=== PATIENT | female | born 1970 | race Caucasian/White ===

== ENCOUNTER 2016-11-09 11:06 | Emergency (ER) | payer MEDICARE, OTHER ==
[~2016-11-09] VITALS: Wt 77.5 kg
[~2016-11-09 11:06] MED LIST: CLZP100T; DIVA500T33; HYOS0.1274 PO; IBUP-727; LORA-408; ONDA4TAB8 PO
[2016-11-09] MEDS ORDERED: IBUP-1542 PO (11:43)
[2016-11-09] MEDS ORDERED: LORA10TA3 PO (11:43)
[2016-11-09] MEDS ORDERED: AZIT500T3 PO (11:43)
--- NOTE | 2016-11-09 14:32 | ERD ---
ER Documentation Chief Complaint Date/Time DATE: 11/09/16 TIME: 14:30 Chief Complaint Pt. states "I have the flu, fever, and nasal congestion" HPI 46-year-old woman presents with 2 weeks of nasal congestion, rhinorrhea, cough, and intermittent fevers. She states she has been using [id number] medications without relief. She denies chest pain or shortness of breath, no calf or leg swelling, no vomiting or diarrhea, no headache or neck stiffness. Patient denies recent antibiotic use. ROS All systems reviewed and are negative except as per history of present illness. Medications Home Meds Active Scripts Loratadine* (Loratadine*) 10 Mg Tablet, 10 MG PO DAILY for na, #15 TAB Prov:NORBERTO CLEMENT MD 11/09/16 Ibuprofen* (Ibuprofen*) 600 Mg Tablet, 600 MG PO Q8 for PAIN AND/OR INFLAMMATION , #30 TAB Prov:NORBERTO CLEMENT MD 11/09/16 Azithromycin* (Zithromax*) 500 Mg Tablet, 500 MG PO DAILY for 5 Days, TAB Prov:NORBERTO CLEMENT MD 11/09/16 Hyoscyamine Sulfate* (Levsin*) 0.125 Mg Tablet, 0.125 MG PO Q8 Y for abdominal cramps, #10 TAB Prov:DIANA BRANDON DO 09/08/15 Ondansetron Hcl* (Zofran*) 4 Mg Tablet, 4 MG PO Q8H Y for NAUSEA AND/OR VOMITING , #8 TAB Prov:DIANA BRANDON DO 09/08/15 Reported Medications Clozapine* (Clozaril*) 100 Mg Tab 05/16/10 Ibuprofen (Motrin) 600 Mg Tablet 05/16/10 Divalproex Sodium (Depakote) 500 Mg Tablet. 05/16/10 Lorazepam (Ativan) 1 Mg Tablet 05/16/10 Allergies Allergies: Coded Allergies: No Known Drug Allergies (Verified Allergy, Mild, 07/18/14) PMhx/Soc Bipolar disorder History of Surgery: Yes (TUBAL LIGATION,ABDOMEN) Anesthesia Reaction: No Hx Neurological Disorder: No Hx Respiratory Disorders: No Hx Cardiac Disorders: No Hx Psychiatric Problems: Yes (BIPOLAR) Hx Miscellaneous Medical Probl: No Hx Alcohol Use: No Hx Substance Use: No Hx Tobacco Use: No Smoking Status: Never smoker FmHx Family History: No diabetes Physical Exam Vitals Vital Signs Date Time Temp Pulse Resp B/P Pulse Ox O2 Delivery O2 Flow Rate FiO2 11/09/16 11:07 98.5 119 20 148/74 100 Physical Exam GENERAL: Well-developed, well-nourished, well-hydrated, in no apparent distress , looks nontoxic in appearance HEENT: Moist mucous membranes, positive nasal congestion, no cervical spine tenderness or step-off deformities, no goiter, no jaundice or icterus, extraocular movements intact without pain. No submandibular induration, and no pharyngeal erythema NEURO: Alert and oriented 3, cranial nerves II through XII intact bilaterally, pupils equal round reactive to light, no focal deficits or facial asymmetry, sensation intact distally Strength 5/5 in upper and lower extremities bilaterally CARDIAC: Regular rate and rhythm, no murmurs rubs or gallops LUNGS: Clear bilaterally no wheezing crackles or stridor ABDOMEN: Soft nontender, no guarding, no rigidity, no rebound, no psoas sign no obturator sign. Normoactive bowel sounds SKIN: Warm and dry to touch, no abrasions, contusions, or hematomas, no lacerations, no ecchymosis, no target lesions, and without ulcers EXTREMITIES: No clubbing cyanosis or edema, calves are bilaterally symmetrical, no Homans sign, no popliteal cord sign. Distal pulses equal and bilateral PSYCH: Normal affect without agitation or irritability Procedures/MDM I provided reassurance to the patient and assured her we can manage her symptoms as an outpatient. Given the duration of her symptoms I will prescribe azithromycin. Patient feels much better at this time, and vital signs are normal, symptoms have improved. I did give strict instructions to return to the ED if symptoms continue or worsen, patient will otherwise follow-up with primary care physician. Patient understood instructions and agreed to plan. Departure Diagnosis: Primary Impression: URI (upper respiratory infection) URI type: acute nasopharyngitis (common cold) Qualified Code: J00 - Acute nasopharyngitis Additional Impression: Sinusitis Sinusitis location: frontal Chronicity: acute Recurrence: non-recurrent Qualified Code: J01.10 - Acute non-recurrent frontal sinusitis Condition: Good Patient Instructions: Sinusitis, Abx Tx NORBERTO CLEMENT MD Nov 09, 2016 14:32
== END 2016-11-09 12:01 | disposition home or self-care (01) ==
LOC: FTE 11:06
DX: J00 Acute nasopharyngitis [common cold] (principal); J01.10 Acute frontal sinusitis, unspecified
CPT/HCPCS: 99284

== ENCOUNTER 2017-06-03 19:37 | Emergency (ER) | payer MEDICARE, OTHER ==
[~2017-06-03] VITALS: Ht 167.6 cm; Wt 75.0 kg
[~2017-06-03 19:37] MED LIST changes: +AZIT500T3 PO; +IBUP-1542 PO; +LORA10TA3 PO
[2017-06-03 19:41] VITALS: Ht 167.6 cm; Wt 75.0 kg
[2017-06-03 20:22] LABS: URINE BLOOD (Dip) POC 1+ (NEGATIVE)
[2017-06-03 20:49] LABS: BASOPHILS % 0.5 % (0.0-2.0); EOSINOPHILS # 0.1 10^3/ul (0.0-0.5); EOSINOPHILS % 1.7 % (0.0-7.0); HEMATOCRIT 34.8 % (37.0-47.0); HEMOGLOBIN 11.8 g/dl (12.0-16.0); LYMPHOCYTES # 2.8 10^3/ul (0.8-2.9); LYMPHOCYTES % 32.9 % (15.0-51.0); MEAN CORPUSCULAR HEMOGLOBIN 31.7 pg (29.0-33.0); MEAN CORPUSCULAR HGB CONC 33.9 g/dl (32.0-37.0); MEAN CORPUSCULAR VOLUME 93.5 fl (82.0-101.0); MEAN PLATELET VOLUME 10.7 fl (7.4-10.4); MONOCYTE # 0.7 10^3/ul (0.3-0.9); MONOCYTES % 8.6 % (0.0-11.0); NEUTROPHILS % 56.1 % (39.0-77.0); PLATELET COUNT 144 10^3/UL (140-415); RED BLOOD COUNT 3.72 10^6/ul (4.20-5.40); RED CELL DISTRIBUTION WIDTH 11.8 % (11.5-14.5); WHITE BLOOD COUNT 8.4 10^3/ul (4.8-10.8)
[2017-06-03 21:09] LABS: PROTIME 13.2 Sec (12.2-14.2)
[2017-06-03 21:10] LABS: PARTIAL THROMBOPLASTIN TIME 32.4 Sec (25.0-35.0)
[2017-06-03 21:15] LABS: ALANINE AMINOTRANSFERASE 23 IU/L (13-69); ALBUMIN 3.8 g/dl (3.3-4.9); ALBUMIN/GLOBULIN RATIO 1.22; ALKALINE PHOSPHATASE 63 IU/L (42-121); ANION GAP 13 (8-16); ASPARTATE AMINO TRANSFERASE 15 IU/L (15-46); BLOOD UREA NITROGEN 9 mg/dl (7-20); CALCIUM 8.9 mg/dl (8.4-10.2); CARBON DIOXIDE 25 mmol/L (21-31); CHLORIDE 102 mmol/L (97-110); CREATININE 0.67 mg/dl (0.44-1.00); GLUCOSE 87 mg/dl (70-220); POTASSIUM 3.7 mmol/L (3.5-5.1); SODIUM 136 mmol/L (135-144); TOTAL PROTEIN 6.9 g/dl (6.1-8.1)
[2017-06-03 21:27] LABS: B-TYPE NATRIURETIC PEPTIDE 49 PG/ML (0-125); TROPONIN-I < 0.012 ng/ml (0.00-0.12)
--- NOTE | 2017-06-03 21:44 | RADRPT ---
PROCEDURE: XR Chest. CLINICAL INDICATION: Shortness of breath. TECHNIQUE: Single frontal chest x-ray. COMPARISON: 07/18/2014 FINDINGS: The cardiomediastinal silhouette is unremarkable. There is no congestive heart failure.. No focal i nfiltrate is seen. There is no pleural effusion. There is no pneumothorax. The osseous structures are unremarkable. IMPRESSION: 1. No active disease. RPTAT: HMVK .Lv Fair MD, MD Date Time Electronically viewed and signed by .Lv Fair MD, on 06/03/2017 21:44 .K/
[2017-06-03 22:06] LABS: D-DIMER 246.67 ng/ml (<460)
--- NOTE | 2017-06-03 22:13 | ERD ---
ER Documentation Chief Complaint Date/Time DATE: 06/03/17 Chief Complaint Shortness of breath x 1 month HPI The patient is a 47-year-old female, with a history of bipolar disorder and anxiety, who presents to the Emergency Department with complaint of shortness of breath. The patient reports hat her symptoms of shortness of breath have been occurring intermittently over the past one month. She admits to a history of similar symptoms in the past, which self resolved. She notes that she begins to feel anxious, and then has difficulty catching her breath. This episode occurred at approximately 5:00 PM today, prompting her visit to the emergency department. She denies any associated chest pain, palpitations or cough. Denies lower extremity edema, calf swelling or calf tenderness. Denies recent travel, recent surgeries, prolonged periods of immobilization, long car rides, recent . Denies history of DVT or PE. Denies hemoptysis. She does admit to regular OCP use, though does not remember the name of her medication. Denies fevers, sweats, chills, rhinorrhea, nasal congestion, sore throat, ear pain, neck pain, neck stiffness or new rashes. ROS All systems reviewed and are negative except as per history of present illness. Medications Home Meds Active Scripts Loratadine* (Loratadine*) 10 Mg Tablet, 10 MG PO DAILY for na, #15 TAB Prov:NORBERTO CLEMENT MD 11/09/16 Ibuprofen* (Ibuprofen*) 600 Mg Tablet, 600 MG PO Q8 for PAIN AND/OR INFLAMMATION , #30 TAB Prov:NORBERTO CLEMENT MD 11/09/16 Azithromycin* (Zithromax*) 500 Mg Tablet, 500 MG PO DAILY for 5 Days, TAB Prov:NORBERTO CLEMENT MD 11/09/16 Hyoscyamine Sulfate* (Levsin*) 0.125 Mg Tablet, 0.125 MG PO Q8 Y for abdominal cramps, #10 TAB Prov:DIANA BRANDON DO 09/08/15 Ondansetron Hcl* (Zofran*) 4 Mg Tablet, 4 MG PO Q8H Y for NAUSEA AND/OR VOMITING , #8 TAB Prov:DIANA BRANDON DO 09/08/15 Reported Medications Clozapine* (Clozaril*) 100 Mg Tab 05/16/10 Ibuprofen (Motrin) 600 Mg Tablet 05/16/10 Divalproex Sodium (Depakote) 500 Mg Tablet. 05/16/10 Lorazepam (Ativan) 1 Mg Tablet 05/16/10 Allergies Allergies: Coded Allergies: No Known Drug Allergies (Verified Allergy, Mild, 06/03/17) PMhx/Soc History of Surgery: Yes (TUBAL LIGATION,ABDOMEN) Anesthesia Reaction: No Hx Neurological Disorder: No Hx Respiratory Disorders: No Hx Cardiac Disorders: No Hx Psychiatric Problems: Yes (BIPOLAR) Hx Miscellaneous Medical Probl: No Hx Alcohol Use: No Hx Substance Use: No Hx Tobacco Use: No Smoking Status: Never smoker Physical Exam Vitals Vital Signs Date Time Temp Pulse Resp B/P Pulse Ox O2 Delivery O2 Flow Rate FiO2 06/03/17 22:18 98.7 99 21 126/81 100 Room Air 06/03/17 22:12 94 20 98 06/03/17 19:41 98.8 135 18 142/83 97 Physical Exam GENERAL: Well-developed, well-nourished, female, in no acute distress. HEENT: Head is normocephalic, atraumatic. No scleral pallor or icterus. Pupils equal, round and reactive to light. Extraocular movements intact. Conjunctiva pink. Moist mucous membranes. Clear oropharynx. No lip or tongue swelling. NECK: Supple. No masses, no tenderness, no lymphadenopathy. Trachea midline. Full range of motion. RESPIRATORY: Lungs are clear to auscultation bilaterally. No rales, rhonchi or wheezing. Equal breath sounds. Normal expiratory effort. Symmetric expansion. No accessory muscle use. Speaking in full sentences. CARDIOVASCULAR: Tachycardic. Regular rhythm. S1 and S2 normal. No murmurs, rubs, or gallops. Distal pulses are palpable, 2+ bilaterally. Capillary refill is less than 2 seconds. GASTROINTESTINAL: Abdomen is soft, non-tender, and non-distended. No guarding, no rebound tenderness. Normal bowel sounds. BACK: No midline tenderness. EXTREMITIES: No clubbing, cyanosis, or edema. Normal skin perfusion. Moving all extremities. Muscle tone is normal. No focal swelling or erythema. NEUROLOGIC: The patient is alert, awake, and oriented x 3. No focal neurologic deficits. INTEGUMENT: Skin is intact. Warm and dry. No rashes, no petechiae present. Normal turgor. PSYCHIATRIC: Cooperative. Result Diagram: 06/03/17204206/03/172042 Results 24 hrs Laboratory Tests Test 06/03/17 20:29 06/03/17 20:43 Bedside Urine pH (LAB) 5.5 Bedside Urine Protein (LAB) Negative Bedside Urine Glucose (UA) Negative Bedside Urine Ketones (LAB) Negative Bedside Urine Blood 1+ Bedside Urine Nitrite (LAB) Negative Bedside Urine Leukocyte Esterase (L Negative White Blood Count 8.410^3/ul Red Blood Count 3.7210^6/ul Hemoglobin 11.8g/dl Hematocrit 34.8% Mean Corpuscular Volume 93.5fl Mean Corpuscular Hemoglobin 31.7pg Mean Corpuscular Hemoglobin Concent 33.9g/dl Red Cell Distribution Width 11.8% Platelet Count 15547^3/UL Mean Platelet Volume 10.7fl Neutrophils % 56.1% Lymphocytes % 32.9% Monocytes % 8.6% Eosinophils % 1.7% Basophils % 0.5% Nucleated Red Blood Cells % 0.0/100WBC Neutrophils # (Manual) 4.710^3/ul Lymphocytes # 2.810^3/ul Monocytes # 0.710^3/ul Eosinophils # 0.110^3/ul Basophils # 0.010^3/ul Nucleated Red Blood Cells # 0.010^3/ul Prothrombin Time 13.2Sec Prothrombin Time Ratio 1.0 INR International Normalized Ratio 1.00 Activated Partial Thromboplast Time 32.4Sec D-Dimer 246.67ng/ml D-Dimer Comment Sodium Level 136mmol/L Potassium Level 3.7mmol/L Chloride Level 102mmol/L Carbon Dioxide Level 25mmol/L Anion Gap 13 Blood Urea Nitrogen 9mg/dl Creatinine 0.67mg/dl Glucose Level 87mg/dl Calcium Level 8.9mg/dl Total Bilirubin 0.0mg/dl Direct Bilirubin 0.00mg/dl Indirect Bilirubin 0.0mg/dl Aspartate Amino Transf (AST/SGOT) 15IU/L Alanine Aminotransferase (ALT/SGPT) 23IU/L Alkaline Phosphatase 63IU/L Troponin I < 0.012ng/ml B-Type Natriuretic Peptide 49PG/ML Total Protein 6.9g/dl Albumin 3.8g/dl Globulin 3.10g/dl Albumin/Globulin Ratio 1.22 Serum HCG, Qualitative NEGATIVE Procedures/MDM EMERGENCY DEPARTMENT COURSE: The patient was stable throughout the ED course. Patient placed on potline monitor and pulse oximetry monitoring. She had O2 saturations of 97-100% throughout the ED course. EKG, chest x-ray, laboratory testing performed. On reevaluation, the patient reports no new complaints and states that she is no longer feeling short of breath. Laboratory tests and imaging reviewed and discussed with Dr. Nunez, who recommends that the patient be discharged home to follow up with PMD as an outpatient. No indication for advanced imaging at this time. DIAGNOSTIC TESTS AND INTERPRETATION: PROCEDURE: XR Chest. CLINICAL INDICATION: Shortness of breath. TECHNIQUE: Single frontal chest x-ray. COMPARISON: 07/18/2014 FINDINGS: The cardiomediastinal silhouette is unremarkable. There is no congestive heart failure.. No focal infiltrate is seen. There is no pleural effusion. There is no pneumothorax. The osseous structures are unremarkable. IMPRESSION: 1. No active disease. .Lv Fair MD, MD Date Time Electronically viewed and signed by .Lv Fair MD, MD on 06/03/2017 21:44 EKG Reviewed and Interpreted by: Dr. Nunez EKG Interpretation: Sinus tachycardia. 121 bpm. Normal axis. No ST-segment elevations. No ectopy. MEDICAL DECISION MAKING: This is a 47-year-old female with history of bipolar disorder and anxiety presenting to the emergency department with complaint of shortness of breath. She was placed in a room and monitored. Lung examination revealed no rales, no rhonchi, no wheezing. She had no nasal flaring, no retractions, no accessory muscle use, no signs of respiratory distress. Chest x- ray performed, with no acute cardiopulmonary abnormalities identified. EKG with no findings of STEMI or acute ischemic changes. Laboratory testing with no significant anemia, no leukocytosis, no significant electrolyte abnormalities. Troponin and D-dimer negative. BNP 49. Given patient history, presentation and results, doubt pneumonia, pulmonary edema, upper respiratory infection, pneumothorax, sepsis, anemia, acute coronary syndrome, pulmonary embolus, metabolic acidosis, congestive heart failure, acute respiratory distress syndrome or any other emergent medical condition. After rest the patient reports no new complaints, and improved/resolved symptoms. Upon my review and interpretation of the patient's presentation and ER course, I believe the patient's symptoms are most consistent with shortness of breath, uncertain etiology. Shortness of breath may be secondary to underlying anxiety, though uncertain at this time. The patient is in stable condition and no longer experiencing any shortness of breath and therefore she can be discharged home with strict return precautions for signs of deteriorating or worsening condition. The patient is advised to follow up with her primary care provider within 1-2 days for reevaluation and further management or return to the ER sooner for any worsening symptoms. I shared my medical decision making and plan with the patient at length and in great detail, and the patient verbally understands and agrees with the plan for further observation and care as an outpatient. At the time of discharge all questions were answered. Departure Diagnosis: Primary Impression: Shortness of breath Condition: Stable Patient Instructions: Coping with Shortness of Breath: Controlling Stress, Dyspnea Additional Instructions: Call your primary care doctor TOMORROW for an appointment during the next 1-2 days.See the doctor sooner or return here if your condition worsens before your appointment time. MILES AWAD PA-C Jun 03, 2017 22:13
[2017-06-03 22:18] VITALS: BP 126/81; PULSE 99; RESP 21; TEMP 98.7
== END 2017-06-03 22:18 | disposition home or self-care (01) ==
LOC: FTE 19:37
DX: R06.02 Shortness of breath (principal)
CPT/HCPCS: 36415; 71010; 80053; 81003; 83880; 84484; 84703; 85025; 85378; 85610; 85730; 93005

== ENCOUNTER 2017-09-04 13:36 | Emergency (ER) | payer MEDICARE, OTHER ==
[~2017-09-04] VITALS: Ht 162.6 cm; Wt 74.3 kg
[2017-09-04 14:05] VITALS: Ht 162.6 cm; Wt 74.3 kg
[2017-09-04] MEDS ORDERED: KETOROLAC 30 MG INJ IV STA (15:38)
[2017-09-04 16:22] LABS: ADD UMIC NO; UR ASCORBIC ACID 40 mg/dL (NEGATIVE); UR BILIRUBIN (Dip) NEGATIVE (NEGATIVE); UR BLOOD (Dip) NEGATIVE (NEGATIVE); UR CLARITY CLEAR (CLEAR); UR COLOR STRAW (YELLOW); UR GLUCOSE (Dip) NEGATIVE (NEGATIVE); UR KETONES (Dip) NEGATIVE (NEGATIVE); UR LEUKOCYTE ESTERASE (Dip) NEGATIVE Leu/ul (NEGATIVE); UR NITRITE (Dip) NEGATIVE (NEGATIVE); UR SPECIFIC GRAVITY (Dip) 1.004 (1.003-1.030); UR TOTAL PROTEIN (Dip) NEGATIVE (NEGATIVE); UR UROBILINOGEN (Dip) NEGATIVE (NEGATIVE)
[2017-09-04 16:25] VITALS: BP 107/56; RESP 16; TEMP 98.6
[2017-09-04] MEDS ORDERED: IBUPROFEN 800 MG TAB PO ONE (16:30)
--- NOTE | 2017-09-04 16:52 | RADRPT ---
PROCEDURE: CT abdomen and pelvis without contrast. CLINICAL INDICATION: Abdominal pain. TECHNIQUE: CT of the abdomen and pelvis was performed without contrast. Coronal and sagittal reform atted images were obtained from the axial source images. Images were reviewed on a high-resolution [email or web address] workstation. The total exam CTDI equals 10.16 mGy and the total exam DLP equals 556.34 mGy-cm. D ICOM images are available. One or more of the following dose reduction techniques were used: - Automated exposure control. - Adjustment of the mA and/or kV according to patient size. - Use of iterative reconstruction technique. COMPARISON: None available. FINDINGS: Visualized lower thorax: The visualized lung bases are clear. The visualized heart is unremarkable. Hepatobiliary system and spleen: The liver is grossly unremarkable. There is no intra or extrahepat ic biliary ductal dilatation. The gallbladder is contracted. The spleen is grossly unremarkable. The pancreas is grossly unremarkable. Adrenal glands and genitourinary system: The adrenal glands are grossly unremarkable. There is no n ephrolithiasis or hydronephrosis. The urinary bladder is grossly unremarkable. The uterus and adnex a are grossly unremarkable. Gastrointestinal system: There is a moderate volume of stool throughout the colon and rectum. There is no bowel wall thickening or evidence of obstruction. The appendix is in the right lower quadrant and is unremarkable. Peritoneum, vascular, and lymphatics: There is no free intraperitoneal air or free fluid. There is no mesenteric or retroperitoneal adenopathy. The aorta is nonaneurysmal. Musculoskeletal system and soft tissues: There is multilevel degenerative enthesopathy, which is mo derate to severe at L5-S1. There are no concerning osseous lesions. The soft tissues are unremarkabl e. IMPRESSION: 1. No acute abnormality or findings to suggest a source of the patient's symptoms. 2. Moderate volume of stool throughout the colon and rectum, suggestive of constipation. RPTAT: HLBP .Alberto Barragan MD, MD Date Time Electronically viewed and signed by .Alberto Barragan MD, MD on 09/04/2017 16:52 .P/
--- NOTE | 2017-09-04 17:15 | ERD ---
ER Documentation Chief Complaint Chief Complaint upper abd pain x 2 weeks, denies N/V/D HPI This is a 47-year-old female who presents the emergency department today complaining of some abdominal pain for the past 2 weeks. States that the pain is in the middle of her stomach and goes upwards. States that she had her menstrual cycle but has still continued to have some cramping. Denies any fevers or chills, vomiting, dysuria. States that he had an ovarian cyst removed years ago. States that she has taken Profen for pain. States that she is bipolar with anxiety and last time she was hospitalized she had a manic episode after the pain medication she was given and she is very concerned about that. States that she takes because of pain, Depakote, Lorazepam and clonazepam daily. States that she recently started taking oral contraceptive pills ROS All systems reviewed and are negative except as per history of present illness. Medications Home Meds Active Scripts Docusate Sodium* (Colace*) 100 Mg Capsule, 100 MG PO TID, #30 CAP Prov:LORI DELCID PA-C 09/04/17 Polyethylene Glycol* (Miralax*) 17 Gm Powd.pack, 17 GM PO DAILY, #15 Prov:LORI DELCID PA-C 09/04/17 Ibuprofen* (Motrin*) 600 Mg Tab, 600 MG PO Q6, #30 TAB Prov:LORI DELCID PA-C 09/04/17 Acetaminophen* (Tylophen*) 500 Mg Capsule, 1 CAP PO Q6H Y for PAIN AND OR ELEVATED TEMP, #30 CAP Prov:LORI DELCID PA-C 09/04/17 Loratadine* (Loratadine*) 10 Mg Tablet, 10 MG PO DAILY for na, #15 TAB Prov:NORBERTO CLEMENT MD 11/09/16 Ibuprofen* (Ibuprofen*) 600 Mg Tablet, 600 MG PO Q8 for PAIN AND/OR INFLAMMATION , #30 TAB Prov:NORBERTO CLEMENT MD 11/09/16 Azithromycin* (Zithromax*) 500 Mg Tablet, 500 MG PO DAILY for 5 Days, TAB Prov:NORBERTO CLEMENT MD 11/09/16 Hyoscyamine Sulfate* (Levsin*) 0.125 Mg Tablet, 0.125 MG PO Q8 Y for abdominal cramps, #10 TAB Prov:DIANA BRANDON DO 09/08/15 Ondansetron Hcl* (Zofran*) 4 Mg Tablet, 4 MG PO Q8H Y for NAUSEA AND/OR VOMITING , #8 TAB Prov:DIANA BRANDON DO 09/08/15 Reported Medications Clozapine* (Clozaril*) 100 Mg Tab 05/16/10 Ibuprofen (Motrin) 600 Mg Tablet 05/16/10 Divalproex Sodium (Depakote) 500 Mg Tablet. 05/16/10 Lorazepam (Ativan) 1 Mg Tablet 05/16/10 Allergies Allergies: Coded Allergies: No Known Drug Allergies (Verified Allergy, Mild, 06/03/17) PMhx/Soc History of Surgery: Yes (TUBAL LIGATION,ABDOMEN) Anesthesia Reaction: No Hx Neurological Disorder: No Hx Respiratory Disorders: No Hx Cardiac Disorders: No Hx Psychiatric Problems: Yes (BIPOLAR) Hx Miscellaneous Medical Probl: No Hx Alcohol Use: No Hx Substance Use: No Hx Tobacco Use: No Physical Exam Vitals Vital Signs Date Time Temp Pulse Resp B/P Pulse Ox O2 Delivery O2 Flow Rate FiO2 09/04/17 16:25 98.6 16 107/56 98 Room Air 09/04/17 14:05 98.1 103 19 122/66 99 Physical Exam Const: anxious Head: Atraumatic Eyes: Normal Conjunctiva ENT: Normal External Ears, Nose and Mouth. Neck: Full range of motion..~ No meningismus. Resp: Clear to auscultation bilaterally Cardio: Regular rate and rhythm, no murmurs Abd: Soft, perimubilical non distended. Normal bowel sounds. No specific tenderness at McBurney's. No pelvic pain Skin: No petechiae or rashes Back: No midline or flank tenderness Ext: No cyanosis, or edema Neur: Awake and alert Psych: Normal Mood and Affect Result Diagram: 09/04/17 1715 09/04/17 171 Results 24 hrs Laboratory Tests Test 09/04/17 15:44 09/04/17 17:15 Urine Color STRAW Urine Clarity CLEAR Urine pH 6.0 Urine Specific [place] 1.004 Urine Ketones NEGATIVEmg/dL Urine Nitrite NEGATIVEmg/dL Urine Bilirubin NEGATIVEmg/dL Urine Urobilinogen NEGATIVEmg/dL Urine Leukocyte Esterase NEGATIVELeu/ul Urine Hemoglobin NEGATIVEmg/dL Urine Glucose NEGATIVEmg/dL Urine Total Protein NEGATIVEmg/dl White Blood Count 9.410^3/ul Red Blood Count 3.4310^6/ul Hemoglobin 11.3g/dl Hematocrit 32.9% Mean Corpuscular Volume 95.9fl Mean Corpuscular Hemoglobin 32.9pg Mean Corpuscular Hemoglobin Concent 34.3g/dl Red Cell Distribution Width 12.0% Platelet Count 50581^3/UL Mean Platelet Volume 11.1fl Neutrophils % 55.7% Lymphocytes % 33.5% Monocytes % 9.1% Eosinophils % 1.1% Basophils % 0.3% Nucleated Red Blood Cells % 0.0/100WBC Neutrophils # 5.210^3/ul Lymphocytes # 3.110^3/ul Monocytes # 0.910^3/ul Eosinophils # 0.110^3/ul Basophils # 0.010^3/ul Nucleated Red Blood Cells # 0.010^3/ul Sodium Level 139mmol/L Potassium Level 4.3mmol/L Chloride Level 105mmol/L Carbon Dioxide Level 24mmol/L Anion Gap 14 Blood Urea Nitrogen 9mg/dl Creatinine 0.64mg/dl Glucose Level 86mg/dl Calcium Level 9.1mg/dl Total Bilirubin 0.2mg/dl Direct Bilirubin 0.00mg/dl Indirect Bilirubin 0.2mg/dl Aspartate Amino Transf (AST/SGOT) 13IU/L Alanine Aminotransferase (ALT/SGPT) 32IU/L Alkaline Phosphatase 62IU/L Total Protein 6.8g/dl Albumin 3.5g/dl Globulin 3.30g/dl Albumin/Globulin Ratio 1.06 Lipase 98U/L Current Medications Medications (Trade) Dose Ordered Sig/[place]ora Route PRN Reason Start Time Stop Time Status Last Admin Dose Admin Ketorolac Tromethamine (Toradol) 30 mg ONCE STAT IV 09/04/17 15:38 09/04/17 15:39 Cancel Ibuprofen (Motrin) 800 mg ONCE ONCE PO 09/04/17 16:30 09/04/17 16:31 DC 09/04/17 16:08 DIAGNOSTIC IMAGING REPORT Patient: VIANNEY SANCHEZ : 1970 Age: 47 Sex: F MR #: [id number] DOS: 09/04/17 1538 Ordering MD: LORI DELCID PA-C Location: [facility] Room/Bed: PROCEDURE: CT abdomen and pelvis without contrast. CLINICAL INDICATION: Abdominal pain. TECHNIQUE: CT of the abdomen and pelvis was performed without contrast. Coronal and sagittal reformatted images were obtained from the axial source images. Images were reviewed on a high-resolution PACS workstation. The total exam CTDI equals 10.16 mGy and the total exam DLP equals 556.34 mGy-cm. DICOM images are available. One or more of the following dose reduction techniques were used: - Automated exposure control. - Adjustment of the mA and/or kV according to patient size. - Use of iterative reconstruction technique. COMPARISON: None available. FINDINGS: Visualized lower thorax: The visualized lung bases are clear. The visualized heart is unremarkable. Hepatobiliary system and spleen: The liver is grossly unremarkable. There is no intra or extrahepatic biliary ductal dilatation. The gallbladder is contracted. The spleen is grossly unremarkable. The pancreas is grossly unremarkable. Adrenal glands and genitourinary system: The adrenal glands are grossly unremarkable. There is no nephrolithiasis or hydronephrosis. The urinary bladder is grossly unremarkable. The uterus and adnexa are grossly unremarkable. Gastrointestinal system: There is a moderate volume of stool throughout the colon and rectum. There is no bowel wall thickening or evidence of obstruction. The appendix is in the right lower quadrant and is unremarkable. Peritoneum, vascular, and lymphatics: There is no free intraperitoneal air or free fluid. There is no mesenteric or retroperitoneal adenopathy. The aorta is nonaneurysmal. Musculoskeletal system and soft tissues: There is multilevel degenerative enthesopathy, which is moderate to severe at L5-S1. There are no concerning osseous lesions. The soft tissues are unremarkable. IMPRESSION: 1. No acute abnormality or findings to suggest a source of the patient's symptoms. 2. Moderate volume of stool throughout the colon and rectum, suggestive of constipation. RPTAT: HLBP .Alberto Barragan MD, MD Date Time Electronically viewed and signed by .lAberto Barragan MD, MD on 09/04/2017 16:52 .P/ CC: LORI DELCID PA-C Procedures/MDM This is a very anxious 47-year-old female who presents to the emergency department today complaining of abdominal pain for the past couple of weeks. Patient does have a history of ovarian cyst however she has no pelvic pain at this time. Patient denied any other symptoms with the exception of pain however given the duration of her symptoms I did obtain a CT abdomen and pelvis as well as laboratory workup. laboratory workup shows no elevated white blood cell count. Her hemoglobin is very mildly decreased. Platelets are within normal limits. Electrolytes are within normal limits. Glucose is within normal limits. Liver enzymes are within normal limits. Lipase is within normal limits. UA is negative for infection test is negative CT Abdomen pelvis noncontrast shows no acute abnormality or findings to suggest pain. Patient does have a moderate volume of stool throughout the colon and rectum suggestive of constipation. There is no bowel wall thickening or evidence of obstruction. Appendix is unremarkable. There is no nephrolithiasis or hydronephrosis. Bladder is unremarkable. Uterus and adnexa are grossly unremarkable. She has no pelvic pain and I have low suspicion for ectopic , tubo- ovarian abscess, ovarian torsion. Symptoms at this time is consistent with abdominal pain that may be related to constipation. I explained this to the patient. I will give her prescription for MiraLAX and Colace. Patient may take her usual psych medications. I will give her Tylenol and Motrin for pain. At this time the patient is stable for discharge and outpatient management. Patient should follow up with their PCP in the next 1-2 days. They may return to the emergency department sooner for any persistent or worsening of symptoms. Patient understood and agreed with the plan. Departure Diagnosis: Primary Impression: Abdominal pain Abdominal location: periumbilical Qualified Code: R10.33 - Periumbilical abdominal pain Additional Impression: Constipation Constipation type: unspecified constipation type Qualified Code: K59.00 - Constipation, unspecified constipation type Condition: Fair LORI DELCID PA-C Sep 04, 2017 17:15
[2017-09-04 17:25] LABS: BASOPHILS % 0.3 % (0.0-2.0); EOSINOPHILS # 0.1 10^3/ul (0.0-0.5); EOSINOPHILS % 1.1 % (0.0-7.0); HEMATOCRIT 32.9 % (37.0-47.0); HEMOGLOBIN 11.3 g/dl (12.0-16.0); LYMPHOCYTES # 3.1 10^3/ul (0.8-2.9); LYMPHOCYTES % 33.5 % (15.0-51.0); MEAN CORPUSCULAR HEMOGLOBIN 32.9 pg (29.0-33.0); MEAN CORPUSCULAR HGB CONC 34.3 g/dl (32.0-37.0); MEAN CORPUSCULAR VOLUME 95.9 fl (82.0-101.0); MEAN PLATELET VOLUME 11.1 fl (7.4-10.4); MONOCYTE # 0.9 10^3/ul (0.3-0.9); MONOCYTES % 9.1 % (0.0-11.0); NEUTROPHIL # 5.2 10^3/ul (1.6-7.5); NEUTROPHILS % 55.7 % (39.0-77.0); PLATELET COUNT 201 10^3/UL (140-415); RED BLOOD COUNT 3.43 10^6/ul (4.20-5.40); WHITE BLOOD COUNT 9.4 10^3/ul (4.8-10.8)
[2017-09-04 17:49] LABS: ALBUMIN 3.5 g/dl (3.3-4.9); ALBUMIN/GLOBULIN RATIO 1.06; BILIRUBIN,INDIRECT 0.2 mg/dl (0-1.1); BILIRUBIN,TOTAL 0.2 mg/dl (0.2-1.3); CALCIUM 9.1 mg/dl (8.4-10.2); CREATININE 0.64 mg/dl (0.44-1.00); POTASSIUM 4.3 mmol/L (3.5-5.1); TOTAL PROTEIN 6.8 g/dl (6.1-8.1)
[2017-09-04] MEDS ORDERED: IBUP-1542 PO (18:09)
[2017-09-04] MEDS ORDERED: ACET500C5 PO (18:09)
[2017-09-04] MEDS ORDERED: DOCU-144 PO (18:10)
[2017-09-04] MEDS ORDERED: POLY17PO6 PO (18:10)
== END 2017-09-04 18:15 | disposition home or self-care (01) ==
LOC: FTE 13:36
DX: K59.00 Constipation, unspecified (principal)
CPT/HCPCS: 74176; 80053; 81003; 83690; 85025; J1885